=== PATIENT | female | born 1960 | race Caucasian/White ===

== ENCOUNTER 2018-11-15 21:30 | Emergency (ER) | payer OTHER ==
[~2018-11-15] VITALS: Ht 167.6 cm; Wt 60.8 kg
[~2018-11-15 21:30] MED LIST: ASPI81CH PO; BENZ100A PO; CYCL10 PO; DIAZ5 PO; HYDACE5 PO; META800 PO; NAPR500 PO; Naprosyn500 MG PO; Neurontin600 MG PO; ZOLP5 PO
[2018-11-15] MEDS ORDERED: DIAZ5 PO (21:42)
[2018-11-15] MEDS ORDERED: Hydrocodone-Ap1 EA20 PO (21:42)
[2018-11-15 22:57] LABS: Source, Urine Clean Catch
[2018-11-15 23:02] LABS: BASOPHILS ABSOLUTE AUTO 0.08 K/mm3 (0.00-0.23); BASOPHILS PERCENT AUTO 1 % (0-2); EOSINOPHILS ABSOLUTE AUTO 0.13 K/mm3 (0.00-0.68); EOSINOPHILS PERCENT AUTO 1 % (0-6); Hematocrit 38.5 % (33.0-51.0); Hemoglobin 12.8 g/dL (11.5-16.0); IMMATURE GRAN ABSOLUTE AUTO 0.07 K/mm3 (0.00-0.10); IMMATURE GRAN PERCENT AUTO 1 % (0-1); LYMPHOCYTES ABSOLUTE AUTO 3.08 K/mm3 (0.84-5.20); LYMPHOCYTES PERCENT AUTO 31 % (21-46); MONOCYTES ABSOLUTE AUTO 0.74 K/mm3 (0.16-1.47); MONOCYTES PERCENT AUTO 8 % (4-13); Mean Corpuscular HGB 32.7 pg (26.0-34.0); Mean Corpuscular HGB Conc 33.2 g/dL (31.5-36.5); Mean Corpuscular Volume 98 fL (80-100); Mean Platelet Volume 9.7 fL (9.1-12.4); NEUTROPHILS PERCENT AUTO 59 % (41-73); Platelet Count 290 K/mm3 (150-400); RDW Coefficient Variation 13.7 % (11.7-14.2); RDW Standard Deviation 49.6 fL (35.1-46.3); Red Blood Cell Count 3.92 M/mm3 (3.80-5.20)
[2018-11-15 23:04] LABS: Bilirubin, Urine Neg (Neg); Blood, Urine Neg (Neg); Glucose Qualitative, Urine Neg (Neg); Ketones, Urine Neg (Neg); Leukocyte Esterase, Urine 2+ (Neg); Nitrite, Urine Neg (Neg); Protein, Urine Neg (Neg); Urobilinogen, Urine NORM (Normal)
[2018-11-15 23:11] LABS: Appearance, Urine Clear (Clear); Color, Urine Yellow (P-Yellow)
[2018-11-15 23:12] LABS: Amorphous Light (0-Heavy); Bacteria Many /hpf; Red Blood Cells, Urine 0-2 /hpf (0-2); Squamous Epithelial Cells Rare /hpf (Few)
[2018-11-15 23:18] LABS: Alanine Aminotransfer (ALT/SGP 31 U/L (12-78); Albumin, Blood 3.8 g/dL (3.4-5.0); Alk Phos 76 U/L (50-136); Anion Gap 4 mmol/L (6-16); Aspartate Aminotrans (AST/SGOT 22 U/L (12-37); Bilirubin, Total 0.4 mg/dL (0.1-1.0); Blood Urea Nitrogen 27 mg/dL (8-24); Bun/Creatinine Ratio 31.4 (12.0-20.0); CO2, Blood 28 mmol/L (21-32); Calcium, Blood 9.6 mg/dL (8.5-10.1); Chloride, Blood 107 mmol/L (98-108); Creatinine, Blood 0.86 mg/dL (0.40-1.00); Glomerular Filtration Rate >60 (60-); Glucose, Blood 99 mg/dL (70-99); Potassium, Blood 3.8 mmol/L (3.5-5.5); Sodium, Blood 139 mmol/L (136-145); Total Protein, Blood 7.8 g/dL (6.4-8.2); Troponin I <0.015 ng/mL (0.000-0.040)
[2018-11-16] MEDS ORDERED: Keflex500 MG PO (00:04)
== END 2018-11-16 00:10 | disposition home or self-care (01) ==
LOC: ER 21:30
PROVIDERS: Physician Assistant
DX: R07.2 Precordial pain (principal); N39.0 Urinary tract infection, site not specified; F17.210 Nicotine dependence, cigarettes, uncomplicated; Z91.048 Other nonmedicinal substance allergy status; Z88.1 Allergy status to other antibiotic agents; Z88.8 Allergy status to other drugs, medicaments and biological substances; Z79.899 Other long term (current) drug therapy; Z79.891 Long term (current) use of opiate analgesic
CPT/HCPCS: 36415; 71046; 80053; 81001; 84484; 85025; 87077; 87086; 87186; 93005; 93010; 99285-25

== ENCOUNTER 2020-07-25 11:07 | Emergency (ER) | payer OTHER ==
[~2020-07-25] VITALS: Ht 167.6 cm; Wt 63.5 kg
[~2020-07-25 11:07] MED LIST changes: +Hydrocodone-Ap1 EA20 PO; +Keflex500 MG PO
[2020-07-25 11:40] LABS: BASOPHILS ABSOLUTE AUTO 0.08 K/mm3 (0.00-0.23); BASOPHILS PERCENT AUTO 1 % (0-2); EOSINOPHILS ABSOLUTE AUTO 0.19 K/mm3 (0.00-0.68); EOSINOPHILS PERCENT AUTO 2 % (0-6); Hematocrit 39.2 % (33.0-51.0); Hemoglobin 13.2 g/dL (11.5-16.0); IMMATURE GRAN ABSOLUTE AUTO 0.04 K/mm3 (0.00-0.10); IMMATURE GRAN PERCENT AUTO 0 % (0-1); LYMPHOCYTES ABSOLUTE AUTO 2.26 K/mm3 (0.84-5.20); LYMPHOCYTES PERCENT AUTO 19 % (21-46); MONOCYTES ABSOLUTE AUTO 0.66 K/mm3 (0.16-1.47); MONOCYTES PERCENT AUTO 6 % (4-13); Mean Corpuscular HGB 32.7 pg (26.0-34.0); Mean Corpuscular HGB Conc 33.7 g/dL (31.5-36.5); Mean Corpuscular Volume 97 fL (80-100); Mean Platelet Volume 9.9 fL (9.1-12.4); NEUTROPHILS ABSOLUTE AUTO 8.85 K/mm3 (1.96-9.15); NEUTROPHILS PERCENT AUTO 73 % (41-73); Platelet Count 275 K/mm3 (150-400); RDW Coefficient Variation 13.2 % (11.7-14.2); RDW Standard Deviation 47.8 fL (35.1-46.3); Red Blood Cell Count 4.04 M/mm3 (3.80-5.20); White Blood Cell Count 12.08 K/mm3 (4.00-11.30)
[2020-07-25 12:01] LABS: Alanine Aminotransfer (ALT/SGP 47 U/L (12-78); Alk Phos 104 U/L (50-136); Anion Gap 2 mmol/L (6-16); Aspartate Aminotrans (AST/SGOT 47 U/L (12-37); Bilirubin, Total 0.3 mg/dL (0.1-1.0); Blood Urea Nitrogen 14 mg/dL (8-24); Bun/Creatinine Ratio 14.7 (12.0-20.0); CO2, Blood 29 mmol/L (21-32); Calcium, Blood 10.2 mg/dL (8.5-10.1); Chloride, Blood 106 mmol/L (98-108); Creatinine, Blood 0.96 mg/dL (0.40-1.00); Globulin, Blood 4.2 g/dL (2.2-4.0); Glomerular Filtration Rate >60 (60-); Glucose, Blood 105 mg/dL (70-99); Potassium, Blood 4.3 mmol/L (3.5-5.5); Sodium, Blood 137 mmol/L (136-145); Total Protein, Blood 8.2 g/dL (6.4-8.2)
[2020-07-25 12:05] LABS: Source, Urine Clean Catch
[2020-07-25 12:09] LABS: Appearance, Urine Clear (Clear); Bilirubin, Urine Neg (Neg); Blood, Urine Neg (Neg); Color, Urine Yellow (P-Yellow); Glucose Qualitative, Urine Neg (Neg); Ketones, Urine Neg (Neg); Leukocyte Esterase, Urine Neg (Neg); Nitrite, Urine Neg (Neg); Protein, Urine Neg (Neg); Urobilinogen, Urine NORM (Normal)
== END 2020-07-25 14:06 | disposition home or self-care (01) ==
LOC: ER 11:07
PROVIDERS: Physician Assistant
DX: S32.029A Unspecified fracture of second lumbar vertebra, initial encounter for closed fracture (principal); R10.9 Unspecified abdominal pain; F17.210 Nicotine dependence, cigarettes, uncomplicated; Z91.09 Other allergy status, other than to drugs and biological substances; Z88.8 Allergy status to other drugs, medicaments and biological substances; Z88.1 Allergy status to other antibiotic agents; Z79.899 Other long term (current) drug therapy; X50.1XXA Overexertion from prolonged static or awkward postures, initial encounter
CPT/HCPCS: 36415; 74176; 80053; 81003; 83690; 85025; 99284-25; J2405; J7030

== ENCOUNTER 2021-12-14 09:20 | Emergency (ER) | payer OTHER ==
[~2021-12-14] VITALS: Ht 167.6 cm; Wt 60.3 kg
[2021-12-14] MEDS ORDERED: Prednisone20 MG PO (12:43)
== END 2021-12-14 12:48 | disposition home or self-care (01) ==
LOC: ER 09:20
DX: L23.3 Allergic contact dermatitis due to drugs in contact with skin (principal); T38.0X5A Adverse effect of glucocorticoids and synthetic analogues, initial encounter; F17.210 Nicotine dependence, cigarettes, uncomplicated; Z91.048 Other nonmedicinal substance allergy status; Z88.1 Allergy status to other antibiotic agents; Z88.8 Allergy status to other drugs, medicaments and biological substances; Z79.899 Other long term (current) drug therapy
CPT/HCPCS: A9270; J7512

== ENCOUNTER → 2022-03-22 | Outpatient (CLI) | payer OTHER ==
[~2022-03-22] MED LIST changes: +Prednisone20 MG PO
== END ==
LOC: LAB SHORT 07:23 → PLD 07:23
DX: L30.9 Dermatitis, unspecified (principal)
CPT/HCPCS: 88312

== ENCOUNTER 2022-09-12 04:03 | Day surgery (SDC) | payer OTHER | END 2022-09-12 23:04 | disposition home or self-care (01) | LOC: WOUND 04:03 | DX: E11.622 Type 2 diabetes mellitus with other skin ulcer (principal); L97.822 Non-pressure chronic ulcer of other part of left lower leg with fat layer exposed; N18.9 Chronic kidney disease, unspecified; E11.22 Type 2 diabetes mellitus with diabetic chronic kidney disease; Z72.0 Tobacco use; L97.102 Non-pressure chronic ulcer of unspecified thigh with fat layer exposed | CPT/HCPCS: 36415; 82310; 83970; 99406; A9270; G0463 ==

== ENCOUNTER 2022-09-19 01:20 | Day surgery (SDC) | payer OTHER | END 2022-09-19 23:13 | disposition home or self-care (01) | LOC: WOUND 01:20 | DX: E11.622 Type 2 diabetes mellitus with other skin ulcer (principal); L97.102 Non-pressure chronic ulcer of unspecified thigh with fat layer exposed; L97.902 Non-pressure chronic ulcer of unspecified part of unspecified lower leg with fat layer exposed; N18.9 Chronic kidney disease, unspecified; E11.22 Type 2 diabetes mellitus with diabetic chronic kidney disease; Z72.0 Tobacco use; L98.498 Non-pressure chronic ulcer of skin of other sites with other specified severity; L97.502 Non-pressure chronic ulcer of other part of unspecified foot with fat layer exposed; E11.621 Type 2 diabetes mellitus with foot ulcer | CPT/HCPCS: 93922; 93970; 99406; A9270; G0463 ==

== ENCOUNTER 2022-09-26 02:18 | Day surgery (SDC) | payer OTHER | END 2022-09-26 22:50 | disposition home or self-care (01) | LOC: WOUND 02:18 | DX: L97.122 Non-pressure chronic ulcer of left thigh with fat layer exposed (principal); L97.822 Non-pressure chronic ulcer of other part of left lower leg with fat layer exposed; L98.492 Non-pressure chronic ulcer of skin of other sites with fat layer exposed; N18.9 Chronic kidney disease, unspecified; E11.22 Type 2 diabetes mellitus with diabetic chronic kidney disease; Z72.0 Tobacco use | CPT/HCPCS: 99406; A9270; G0463 ==

== ENCOUNTER 2022-10-03 02:21 | Day surgery (SDC) | payer OTHER | END 2022-10-03 23:07 | disposition home or self-care (01) | LOC: WOUND 02:21 | DX: E11.622 Type 2 diabetes mellitus with other skin ulcer (principal); L97.822 Non-pressure chronic ulcer of other part of left lower leg with fat layer exposed; E11.22 Type 2 diabetes mellitus with diabetic chronic kidney disease; N18.9 Chronic kidney disease, unspecified; Z72.0 Tobacco use; L98.498 Non-pressure chronic ulcer of skin of other sites with other specified severity ==

== ENCOUNTER 2022-10-17 02:47 | Day surgery (SDC) | payer OTHER | END 2022-10-17 22:52 | disposition home or self-care (01) | LOC: WOUND 02:47 | DX: E11.622 Type 2 diabetes mellitus with other skin ulcer (principal); E11.22 Type 2 diabetes mellitus with diabetic chronic kidney disease; N18.9 Chronic kidney disease, unspecified; L98.498 Non-pressure chronic ulcer of skin of other sites with other specified severity; Z72.0 Tobacco use; L97.102 Non-pressure chronic ulcer of unspecified thigh with fat layer exposed | CPT/HCPCS: A9270 ==

== ENCOUNTER 2022-10-24 01:16 | Day surgery (SDC) | payer OTHER | END 2022-10-24 22:47 | disposition home or self-care (01) | LOC: WOUND 01:16 | DX: E11.622 Type 2 diabetes mellitus with other skin ulcer (principal); L97.102 Non-pressure chronic ulcer of unspecified thigh with fat layer exposed; L97.902 Non-pressure chronic ulcer of unspecified part of unspecified lower leg with fat layer exposed; E11.22 Type 2 diabetes mellitus with diabetic chronic kidney disease; N18.9 Chronic kidney disease, unspecified; L98.498 Non-pressure chronic ulcer of skin of other sites with other specified severity; Z72.0 Tobacco use | CPT/HCPCS: A9270; G0463 ==

== ENCOUNTER 2022-10-31 02:05 | Day surgery (SDC) | payer OTHER | END 2022-10-31 23:00 | disposition home or self-care (01) | LOC: WOUND 02:05 | DX: E11.622 Type 2 diabetes mellitus with other skin ulcer (principal); L97.122 Non-pressure chronic ulcer of left thigh with fat layer exposed; E11.22 Type 2 diabetes mellitus with diabetic chronic kidney disease; N18.9 Chronic kidney disease, unspecified; Z72.0 Tobacco use | CPT/HCPCS: 99406; A9270 ==

== ENCOUNTER 2022-12-05 02:37 | Day surgery (SDC) | payer OTHER | END 2022-12-05 23:21 | disposition home or self-care (01) | LOC: WOUND 02:37 | DX: E11.622 Type 2 diabetes mellitus with other skin ulcer (principal); L97.102 Non-pressure chronic ulcer of unspecified thigh with fat layer exposed; E11.22 Type 2 diabetes mellitus with diabetic chronic kidney disease; N18.9 Chronic kidney disease, unspecified; Z72.0 Tobacco use | CPT/HCPCS: A9270; G0463 ==

== ENCOUNTER 2023-02-11 12:01 | Day surgery (SDC) | payer OTHER | END 2023-02-11 22:51 | disposition home or self-care (01) | LOC: WOUND 12:01 | DX: L97.802 Non-pressure chronic ulcer of other part of unspecified lower leg with fat layer exposed (principal); I87.2 Venous insufficiency (chronic) (peripheral); I73.9 Peripheral vascular disease, unspecified; F17.210 Nicotine dependence, cigarettes, uncomplicated | CPT/HCPCS: A9270; G0463 ==